=== PATIENT | female | born 1995 | race Caucasian/White ===

== ENCOUNTER 2018-07-29 09:20 | Inpatient (IN) | payer BC ==
[~2018-07-29] VITALS: Ht 154.9 cm; Wt 78.0 kg
[2018-07-29] VITALS (41 sets, daily range): BP systolic 110–139; BP diastolic 53–89
[~2018-07-29 09:20] MED LIST: DCS100C PO; IBP800T PO; OXYC1TAB12 PO; PREN1TAB25 PO
[2018-07-29] MEDS ORDERED: D5 LR IV SOLUTION 1,000 ML IV ONE (09:45)
[2018-07-29] MEDS ORDERED: D5 LR IV SOLUTION 1,000 ML IV SCH (10:08)
[2018-07-29] MEDS ORDERED: OXYTOCIN/NORMAL SALINE 500 ML IV SCH ×2 (10:17→11:20)
[2018-07-29 10:46] LABS: BASOPHILS % (AUTO) 0 % (0-10); EOSINOPHILS % (AUTO) 0 % (0-10); HEMATOCRIT 34 % (35-52); HEMOGLOBIN 11.9 G/DL (11.5-16.0); LYMPHOCYTES # (AUTO) 2.4 X 10^3 (1.0-4.0); LYMPHOCYTES % (AUTO) 21 % (12-44); MEAN CORPUSCULAR HEMOGLOBIN 31 PG (25-34); MEAN CORPUSCULAR HGB CONC 35 G/DL (32-36); MEAN CORPUSCULAR VOLUME 87 FL (80-99); MEAN PLATELET VOLUME 9.8 FL (7.4-10.4); MONOCYTES # (AUTO) 0.8 X 10^3 (0.0-1.0); MONOCYTES % (AUTO) 7 % (0-12); NEUTROPHILS # (AUTO) 7.9 X 10^3 (1.8-7.8); NEUTROPHILS % (AUTO) 71 % (42-75); PLATELET COUNT 272 10^3/uL (130-400); RED CELL DISTRIBUTION WIDTH 13.5 % (10.0-14.5); WHITE BLOOD COUNT 11.1 10^3/uL (4.3-11.0)
[2018-07-29] MEDS ORDERED: FLU QUADRIvalent (5+ YOA) 2018-2019 (AFLURIA) 0.5 ML IM ONE (11:00)
[2018-07-29] MEDS ORDERED: SUFENTA 0.6MCG/ML BUPIVA 0.125 100 ML ONE (11:04)
[2018-07-29] MEDS ORDERED: LIDOCAINE/EPI 2% 1:200,00 (XYLOCAINE) 10 ML VIAL ONE (11:04)
--- NOTE | 2018-07-29 11:26 | History & Physical ---
History and Physical Date Seen by Provider: Jul 29, 2018 Time Seen by Provider: 11:24 This patient is a 22-year-old white female with an EDC of 10 1518: Her at just past 38 weeks gestation. She presented with complaint of spontaneous rupture membranes at about 8AM when she noted a gush of pinkish fluid she has continued to leak clear. has been uncomplicated to date. GBS culture after 35 weeks gestation was negative. Allergies are none Medications are vitamins Medical social and surgical histories are per the antepartum record HEENT exam is normal Neck is supple no lymphadenopathy no thyromegaly Abdomen is gravid soft nontender nondistended Extremities show no clubbing cyanosis. There is no Homans sign. Pelvic exam is deferred - exam per the nurse on admission showed gross rupture membranes with nitrazine positive test reaches 4 cm dilated 80 percent effaced - 2 station with a vertex presentation Laboratory Tests 07/29/18 10:32 Assessment and plan 38 week gestation with PROM. Patient has been admitted she is requesting an epidural which will be allowed management will be expected. Anticipation is for vaginal delivery. PROM at 38 weeks gestation Allergies and Home Medications Allergies Coded Allergies: No Known Drug Allergies (Unverified , 04/08/15) Home Medications Vit#96/Ferrous Fum/Fa 1 Each Tablet, 1 EACH PO DAILY, (Reported) Patient Home Medication List Home Medication List Reviewed: Yes Clinical Quality Measures DVT/VTE Risk/Contraindication: Risk Factor Score Per Nursin RFS Level Per Nursing on Admit: 1=Low/No VTE PPX PIEDAD BUSTILLO MD Jul 29, 2018 11:26 am
[2018-07-29] MEDS ORDERED: oxyCODONE/APAP 5/325MG (PERCOCET 5) TABLET PO PRN (11:30)
[2018-07-29] MEDS ORDERED: ONDANSETRON 4 MG/2 ML (SDV) Z0FRAN IVP PRN (11:30)
[2018-07-29] MEDS ORDERED: MEASLES,MUMPS,RUBELLA 1 EA INJ SC ONE (11:30)
[2018-07-29] MEDS ORDERED: TETANUS,DIPTH,PERTUSS P/F (BOOSTRIX) 0.5 ML VIAL IM ONE (11:30)
[2018-07-29] MEDS ORDERED: fentaNYL INJECTION 100 MCG/2 ML AMP ONE (12:10)
[2018-07-29] MEDS ORDERED: BUPIVACAINE 0.5% 30 ML (SENSORCAINE) VIAL ONE (12:10)
[2018-07-29] MEDS ORDERED: LACTATED RINGERS 1,000 ML IV SCH (12:46)
[2018-07-29] MEDS ORDERED: ONDANSETRON 4 MG/2 ML (SDV) Z0FRAN IV PRN (13:00)
[2018-07-29] MEDS ORDERED: EPIDURAL (SUFENTA 0.6MCG/ML BUPIVA 0.125%) 100 ML BAG EPI PRN (13:00)
[2018-07-29] MEDS ORDERED: diphenhydrAMINE 50 MG/ML INJ (BENADRYL) IV PRN (13:00)
[2018-07-29] MEDS ORDERED: METOCLOPRAMIDE INJ 10 MG/2 ML (REGLAN) IV PRN (13:00)
[2018-07-29] MEDS ORDERED: NALOXONE 0.4 MG/ML 1 ML (NARCAN) VIAL IV PRN ×2 (13:00)
[2018-07-29] MEDS: OXYTOCIN/NORMAL SALINE 500 ML IV SCH ×2 (13:09→13:12)
[2018-07-29] MEDS ORDERED: LIDOCAINE/EPI 2% 1:200,00 (XYLOCAINE) 10 ML VIAL INJ ONE (15:54)
[2018-07-29] MEDS ORDERED: IBUP-1780 PO (16:36)
[2018-07-29] MEDS ORDERED: DOCU100C37 PO (16:36)
[2018-07-29] MEDS ORDERED: OXYC1TAB87 PO (16:36)
--- NOTE | 2018-07-29 16:37 | Discharge Instructions ---
Discharge Instructions Discharge Medications New, Converted or Re-Newed RX: RX on Chart Patient Instructions Patient Instructions: As directed Return to The Hospital For: DIRECTED Activity & Diet Discharge Diet: No Restrictions Activity as Tolerated: No Orders-Post D/C & Referrals Follow Up Appt: Call to make follow up appt. for patient in 4 weeks. Activity Per routine post vaginal delivery instructions. Diet as tolerated Patient may shower or tub bathe as desired. PIEDAD BUSTILLO MD Jul 29, 2018 4:37 pm
[2018-07-29] MEDS: KETOROLAC 30 MG/ML VIAL IV SCH (18:17)
[2018-07-29] MEDS ORDERED: WITCH HAZEL(TUCKS) 40 EA JAR ONE (18:51)
[2018-07-29] MEDS: WITCH HAZEL(TUCKS) 40 EA JAR TOP PRN (19:00)
[2018-07-29] MEDS: BENZOCAINE/MENTHOL (DERMOPLAST) 56 ML CAN TP PRN (19:00)
--- NOTE | 2018-07-29 19:33 | OPERATIVE REPORT ---
DATE OF SERVICE: 07/29/2018 DELIVERY NOTE The patient delivered by term spontaneous vaginal delivery a viable female infant with Apgars of 9 and 9 at 1 and 5 minutes respectively, weight of 7 pounds. Cord blood gas that is pending and a time of 1557. The infant was delivered over midline episiotomy that was performed as the posterior vaginal wall and perineum were beginning to split and tear somewhat irregularly. The episiotomy was performed allowing adequate room for the delivery. The delivered promptly, was bulb suctioned on delivery of the head and again on completion of delivery. Umbilical cord was doubly clamped, father cut the cord, the baby was passed to mom's abdomen. Cord bloods were obtained. The placenta delivered spontaneously Tellez. It was normal with a 3-vessel cord. The cervix, vagina, rectum, and perineum were examined and found intact except for the midline episiotomy in the posterior vaginal wall, second degree laceration, which were repaired with a single suture, has one defect in the usual manner without difficulty to good hemostasis. The patient tolerated the delivery and the repair well, and remained in the LDR for recovery. The baby remained with mom. Sponge and needle counts were correct at the end of procedure. Estimated blood loss for procedure was 150 mL. Job ID: [id number] DocumentID: [id number] Dictated Date: 07/29/2018 16:12:16 Coffee Break Attendant Date: 07/29/2018 19:32:04 Dictated By: PIEDAD BUSTILLO MD
[2018-07-29] MEDS: DOCUSATE SODIUM 100 MG (COLACE) CAP PO SCH (20:58)
[2018-07-30] VITALS: BP 105/69
[2018-07-30] MEDS: KETOROLAC 30 MG/ML VIAL IV SCH ×2 (00:35→06:31)
[2018-07-30 04:00] VITALS: BP 125/78
[2018-07-30] MEDS: CATHETER FLUSH 10 ML SYR IV SCH (06:31)
--- NOTE | 2018-07-30 07:29 | Progress Note-Standard ---
Standard Progress Note Progress Notes/Assess & Plan Date Seen by a Provider: Jul 30, 2018 Time Seen by a Provider: 07:28 Progress/Assessment & Plan This patient is without complaint. She is ambulating, voiding, tolerating oral intake well, has good pain control. Patient denies chest pain, denies shortness of breath, denies nausea vomiting, denies headache. Vital signs are stable. Patient is afebrile. Fundus is firm below the umbilicus nontender. Extremities show no clubbing cyanosis. There is no Homans sign. Vital Signs 07/30/18 04:00 Temp 97.9 Pulse 67 Resp 16 B/P (MAP) 125/78 (94) Pulse Ox 97 O2 Delivery Room Air Assessment and plan day number 1 doing well. Plan is for routine convalescence. PIEDAD BUSTILLO MD Jul 30, 2018 7:29 am
[2018-07-30 08:00] VITALS: BP 113/74
[2018-07-30] MEDS: DOCUSATE SODIUM 100 MG (COLACE) CAP PO SCH ×2 (08:04→20:24)
--- NOTE | 2018-07-30 10:00 | Anesthesia-Regional Post-Op ---
Regional Patient Condition Mental Status: Alert, Oriented x3 Circulation: Same as Pre-Op Headache: Absent Sensation: Full Recovery Motor Block: Absent Post Op Complications Complications Back is soar. Follow Up Care/Instructions Patient Instructions Assured patient that was normal. Informed her if not better in 5 days to call us. Anesthesia/Patient Condition Patient is doing well, no complaints, stable vital signs, no apparent adverse anesthesia problems. No complications reported per nursing. LAN THORNTON CRNA Jul 30, 2018 10:00
[2018-07-30 12:00] VITALS: BP 116/67
[2018-07-30] MEDS: IBUPROFEN 800 MG (MOTRIN) TAB PO SCH ×2 (12:18→17:45)
[2018-07-30 17:45] VITALS: BP 113/73
[2018-07-31] MEDS: IBUPROFEN 800 MG (MOTRIN) TAB PO SCH ×3 (00:14→11:33)
[2018-07-31] MEDS: CATHETER FLUSH 10 ML SYR IV SCH ×3 (00:19→11:22)
[2018-07-31] MEDS: KETOROLAC 30 MG/ML VIAL IV SCH (00:20)
[2018-07-31 00:21] VITALS: BP 113/75
[2018-07-31 05:42] VITALS: BP 122/77
--- NOTE | 2018-07-31 07:37 | Progress Note-Standard ---
Standard Progress Note Progress Notes/Assess & Plan Date Seen by a Provider: Jul 31, 2018 Time Seen by a Provider: 07:36 Progress/Assessment & Plan This patient is without complaint. She is ambulating, voiding, tolerating oral intake well, has good pain control. Patient denies chest pain, denies shortness of breath, denies nausea vomiting, denies headache. Vital signs are stable. Patient is afebrile. Fundus is firm below the umbilicus nontender. Extremities show no clubbing cyanosis. There is no Homans sign. Vital Signs 07/30/18 04:00 Temp 97.9 Pulse 67 Resp 16 B/P (MAP) 125/78 (94) Pulse Ox 97 O2 Delivery Room Air Assessment and plan day number 1 doing well. Plan is for routine convalescence. July 31, 2018 Patient is without complaint. She is ambulating, voiding, tolerating oral intake well, has good pain control, and is requesting discharge home. Vital Signs 07/31/18 05:42 Temp 97.5 Pulse 64 Resp 18 B/P (MAP) 122/77 (92) Pulse Ox 98 O2 Delivery Room Air Vital signs are stable. Patient is afebrile. Fundus is firm below the umbilicus and nontender. Extremities show no clubbing or cyanosis. There is no Homans sign. There is some pretibial pitting edema that is normal. Assessment and plan day number 2 doing well. Plan is for discharge home Final Diagnosis 38 week spontaneous vaginal delivery PIEDAD BUSTILLO MD Jul 31, 2018 7:37 am
[2018-07-31 09:10] VITALS: BP 113/76
[2018-07-31] MEDS: DOCUSATE SODIUM 100 MG (COLACE) CAP PO SCH (09:12)
[2018-07-31] MEDS: BENZOCAINE/MENTHOL (DERMOPLAST) 56 ML CAN TP PRN (09:12)
[2018-07-31] MEDS: WITCH HAZEL(TUCKS) 40 EA JAR TOP PRN (09:12)
== END 2018-07-31 13:07 | disposition home or self-care (01) | DRG 807 ==
LOC: LDRP 09:20 → WSo 09:20 → LDRP 10:03
PROVIDERS: ADMIT Obstetrics & Gynecology; ATTEND Obstetrics & Gynecology
PROC: 10E0XZZ Delivery of Products of Conception, External Approach (ICD-10-PCS; principal; 2018-07-29)
PROC: 0KQM0ZZ Repair Perineum Muscle, Open Approach (ICD-10-PCS; 2018-07-29)
PROC: 0W8NXZZ Division of Female Perineum, External Approach (ICD-10-PCS; 2018-07-29)
DX: O42.02 Full-term premature rupture of membranes, onset of labor within 24 hours of rupture (principal); O70.1 Second degree perineal laceration during delivery; O99.613 Diseases of the digestive system complicating pregnancy, third trimester; K21.9 Gastro-esophageal reflux disease without esophagitis; Z3A.38 38 weeks gestation of pregnancy; Z37.0 Single live birth
CPT/HCPCS: 36415; 85025; 86850; 86900; 86901; 99212

== ENCOUNTER 2020-12-12 14:15 | Outpatient (CLI) | payer BC ==
[~2020-12-12] VITALS: Ht 157.5 cm; Wt 79.2 kg
[~2020-12-12 14:15] MED LIST changes: +DOCU100C37 PO; +IBUP-1780 PO; +OXYC1TAB87 PO
[2020-12-12 14:30] VITALS: BP 115/70
[2020-12-12 14:45] VITALS: BP 115/70
[2020-12-12 14:54] LABS: BILIRUBIN,URINE NEGATIVE (NEGATIVE); CLARITY,URINE CLEAR; COLOR,URINE YELLOW; GLUCOSE, URINE (UA) NEGATIVE (NEGATIVE); KETONES,URINE TRACE (NEGATIVE); LEUKOCYTE ESTERASE ,URINE NEGATIVE (NEGATIVE); NITRITE,URINE NEGATIVE (NEGATIVE); PROTEIN,URINE TRACE (NEGATIVE)
[2020-12-12 15:04] LABS: BACTERIA,URINE TRACE /HPF; SQUAMOUS EPITHELIAL CELL,UR 0-2 /HPF; WBC,URINE RARE /HPF
[2020-12-12 15:26] VITALS: BP 103/61
[2020-12-12 16:25] VITALS: BP 103/61
--- NOTE | 2020-12-15 08:49 | Physician Query-Final Dx ---
Clinic Account Progress/Dx Physician Query: Please give diagnosis Please include # weeks gestation Date of Service Dec 12, 2020 at 14:15 YUDITH WHITE Dec 15, 2020 08:49
== END 2020-12-12 16:25 | disposition home or self-care (01) ==
LOC: WSo 14:15 → LDRP 14:16 → WSo 16:25
PROVIDERS: ATTEND Obstetrics & Gynecology
DX: O26.893 Other specified pregnancy related conditions, third trimester (principal); R10.2 Pelvic and perineal pain; Z3A.00 Weeks of gestation of pregnancy not specified
CPT/HCPCS: 81000; 87088; 99214

== ENCOUNTER 2021-01-16 09:12 | Inpatient (IN) | payer MEDICAID ==
[2021-01-16] VITALS (75 sets, daily range): BP systolic 75–161; BP diastolic 39–89
[~2021-01-16] VITALS: Ht 154.9 cm; Wt 80.5 kg
[2021-01-16] MEDS ORDERED: AMPICILLIN FOR IV USE 2,000 MG in WATER (STERILE) FOR INJECTION 14.8 ML IV ONE (09:30)
[2021-01-16] MEDS: D5 LR IV SOLUTION 1,000 ML IV SCH ×2 (09:51→16:59)
--- NOTE | 2021-01-16 09:53 | History & Physical ---
History and Physical Date Seen by Provider: Jan 16, 2021 Time Seen by Provider: 09:51 This patient is a 25-year-old 4 para 2 A1 white female seen in clinic on this date. She was found to have fairly marked oligohydramnios with an DINA of less than 33. Her previous was complicated by this as well. Decision made to admit for labor induction due to oligohydramnios. Patient's history is further complicated by GBS positive culture after 35 weeks gestation. Patient denies rupture membranes or bleeding. Allergies are none Medications are vitamins Medical social and surgical history is all per the antepartum record HEENT exam is normal Neck is supple no lymphadenopathy no thyromegaly Abdomen is gravid soft nontender nondistended Extremities show no clubbing cyanosis. There is no Homans' sign. Pelvic exam is deferred Assessment and plan 38-2/7 weeks gestation in a patient with fairly marked oligohydramnios plan is for admission for labor induction with Pitocin under the protection of ampicillin for GBS prophylaxis. We anticipate a vaginal delivery 38 weeks with oligohydramnios Allergies and Home Medications Allergies Coded Allergies: No Known Drug Allergies (Unverified , 04/08/15) Home Medications Vit#96/Ferrous Fum/Fa 1 Each Tablet, 1 EACH PO DAILY, (Reported) Patient Home Medication List Home Medication List Reviewed: Yes PIEDAD BUSTILLO MD Jan 16, 2021 09:53
[2021-01-16 10:13] LABS: BASOPHILS % (AUTO) 0 % (0-10); EOSINOPHILS % (AUTO) 0 % (0-10); HEMATOCRIT 33 % (35-52); HEMOGLOBIN 10.9 g/dL (11.5-16.0); LYMPHOCYTES # (AUTO) 2.3 10^3/uL (1.0-4.0); LYMPHOCYTES % (AUTO) 23 % (12-44); MEAN CORPUSCULAR HEMOGLOBIN 28 pg (25-34); MEAN CORPUSCULAR HGB CONC 33 g/dL (32-36); MEAN CORPUSCULAR VOLUME 86 fL (80-99); MEAN PLATELET VOLUME 9.7 fL (9.0-12.2); MONOCYTES # (AUTO) 0.7 10^3/uL (0.0-1.0); MONOCYTES % (AUTO) 7 % (0-12); NEUTROPHILS % (AUTO) 70 % (42-75); PLATELET COUNT 283 10^3/uL (130-400)
[2021-01-16] MEDS: OXYTOCIN PRE-MIX DRIP 500 ML IV SCH (10:57)
[2021-01-16] MEDS ORDERED: fentaNYL 2 mcg/ml BUPIVA 0.125 100 ML ONE (13:02)
[2021-01-16] MEDS ORDERED: fentaNYL INJ 100 MCG/2 ML AMP ONE (13:11)
[2021-01-16] MEDS ORDERED: BUPIVACAINE 0.25% 30 ML (SENSORCAINE) VIAL ONE (13:11)
[2021-01-16] MEDS: AMPICILLIN FOR IV USE 1,000 MG in WATER (STERILE) FOR INJECTION 7.4 ML IV SCH ×2 (14:15→18:40)
[2021-01-16] MEDS ORDERED: diphenhydrAMINE 50 MG/ML INJ (BENADRYL) IV PRN (14:30)
[2021-01-16] MEDS ORDERED: ONDANSETRON 4 MG/2 ML (SDV) Z0FRAN IV PRN (14:30)
[2021-01-16] MEDS ORDERED: METOCLOPRAMIDE INJ 10 MG/2 ML (REGLAN) IV PRN (14:30)
[2021-01-16] MEDS ORDERED: EPIDURAL (fentaNYL 2 MCG/ML BUPIVA 0.125%)100 ML BAG EPI PRN (14:30)
[2021-01-16] MEDS ORDERED: LACTATED RINGERS 1,000 ML IV SCH (14:30)
[2021-01-16] MEDS ORDERED: NALOXONE 0.4 MG/ML 1 ML (NARCAN) VIAL IV PRN ×2 (14:30)
[2021-01-16] MEDS ORDERED: OXYC1TAB87 PO (19:35)
[2021-01-16] MEDS ORDERED: DOCU-143 PO (19:35)
[2021-01-16] MEDS ORDERED: IBUP-1780 PO (19:35)
--- NOTE | 2021-01-16 19:36 | Discharge Inst-Surgical ---
Discharge Inst-Surgical Depart Medication/Instructions New, Converted or Re-Newed RX: RX on Chart Consults/Follow Up Patient Instructions: As directed Orders & Referrals Follow Up Appt: Call to make follow up appt. for patient in 4 weeks. Activity Per routine post vaginal delivery instructions. Please call in RX to patient pharmacy. Diet as tolerated Patient may shower or tub bathe as desired. Activity Activity as Tolerated: No Diet Discharge Diet: No Restrictions PIEDAD BUSTILLO MD Jan 16, 2021 19:36
[2021-01-16] MEDS ORDERED: LIDOCAINE/EPI 2% 1:200,00 (XYLOCAINE) 10 ML VIAL ONE (20:00)
[2021-01-16] MEDS ORDERED: TETANUS,DIPTH,PERTUSS P/F (BOOSTRIX) 0.5 ML VIAL IM ONE (23:00)
[2021-01-16] MEDS ORDERED: MEASLES,MUMPS,RUBELLA 1 EA INJ SC ONE (23:00)
[2021-01-16] MEDS ORDERED: ONDANSETRON 4 MG/2 ML (SDV) Z0FRAN IVP PRN (23:00)
[2021-01-16] MEDS ORDERED: OXYTOCIN PRE-MIX DRIP 500 ML IV SCH (23:00)
[2021-01-16] MEDS ORDERED: BENZOCAINE/MENTHOL (DERMOPLAST) 60 ML CAN TP PRN (23:00)
[2021-01-16] MEDS ORDERED: oxyCODONE/APAP 5/325MG (PERCOCET 5) TABLET PO PRN (23:00)
[2021-01-17] VITALS (7 sets, daily range): BP systolic 107–117; BP diastolic 56–67
[2021-01-17] MEDS: KETOROLAC 30 MG/ML VIAL IVP SCH ×5 (00:38→23:27)
--- NOTE | 2021-01-17 03:23 | OPERATIVE REPORT ---
DATE OF SERVICE: DELIVERY NOTE The patient delivered by term spontaneous vaginal delivery of a viable male with Apgars of 9 and 9 at 1 and 5 minutes respectively, weight of 7 pounds 4 ounces, time of 2203 and a cord blood pH of 7.16. The infant was delivered over a first-degree perineal laceration under epidural analgesia. There was a very tight nuchal cord that was slipped over the shoulders as the infant delivered. The was bulb suctioned on delivery of the head and again on completion of delivery. Umbilical cord when pulseless was doubly clamped and the father cut the cord, the baby was passed to mom's abdomen. Cord bloods were obtained. The placenta delivered spontaneously Tellez. It was normal with 3-vessel cord. The cervix, vagina, rectum, and perineum were examined and found intact, except for a second-degree perineal laceration that was repaired with a single suture of 3-0 Vicryl Rapide in the usual manner under local analgesia to good hemostasis and good reapproximation. The patient tolerated the delivery and the repair well and remained in the LDR for recovery. The baby remained with the mom. Sponge and needle counts were correct. Blood loss was around the 150 mL. Job ID: [id number] DocumentID: [id number] Dictated Date: 01/16/2021 23:01:32 Monogram Technician Date: 01/17/2021 03:22:35 Dictated By: PIEDAD BUSTILLO MD
[2021-01-17] MEDS: OXYTOCIN PRE-MIX DRIP 500 ML IV SCH (07:50)
[2021-01-17] MEDS: DOCUSATE SODIUM 100 MG (COLACE) CAP PO SCH ×2 (08:18→21:12)
--- NOTE | 2021-01-17 10:42 | Anesthesia-Regional Post-Op ---
Regional Patient Condition Mental Status: Alert, Oriented x3 Circulation: Same as Pre-Op Headache: Absent Sensation: Full Recovery Motor Block: Absent Post Op Complications Complications None Follow Up Care/Instructions Patient Instructions None needed. Anesthesia/Patient Condition Patient is doing well, no complaints, stable vital signs, no apparent adverse anesthesia problems. No complications reported per nursing. D/C home per [facility] Criteria: AZIZA Oglesby CRNA Jan 17, 2021 10:42
--- NOTE | 2021-01-17 10:47 | Progress Note ---
Standard Progress Note Progress Notes/Assess & Plan Date Seen by a Provider: Jan 17, 2021 Time Seen by a Provider: 10:46 Progress/Assessment & Plan This patient is without complaint. She is ambulating, voiding, tolerating oral intake well and has good pain control. Vital Signs Date Time Temp Pulse Resp B/P (MAP) Pulse Ox O2 Delivery O2 Flow Rate FiO2 01/17/21 08:00 36.2 92 18 107/59 (75) 97 Room Air 01/17/21 04:00 36.5 80 18 109/56 (73) Room Air 01/17/21 00:15 102 18 112/61 (78) Room Air 01/17/21 00:00 106 18 116/67 (83) Room Air 01/16/21 23:45 115 18 117/65 (82) Room Air 01/16/21 23:30 36.7 107 18 113/58 (76) Room Air 01/16/21 23:15 109 18 121/57 (78) Room Air 01/16/21 23:00 121 18 161/89 (113) Room Air 01/16/21 22:45 110 18 115/58 (77) Room Air 01/16/21 22:30 36.5 110 18 124/61 (82) Room Air 01/16/21 22:00 127 18 122/66 (84) Room Air 01/16/21 21:45 100 18 116/69 (85) Room Air 01/16/21 21:30 101 18 121/73 (89) 100 Room Air 01/16/21 21:15 100 18 116/73 (87) 100 Room Air 01/16/21 21:00 93 18 114/68 (83) 100 Room Air 01/16/21 20:45 97 18 116/70 (85) 100 Room Air 01/16/21 20:30 88 18 113/65 (81) 100 Room Air 01/16/21 20:15 90 18 114/60 (78) 100 Room Air 01/16/21 20:00 90 18 103/56 (72) 100 Room Air 01/16/21 19:45 36.5 97 18 106/62 (77) 100 Room Air 01/16/21 19:15 97 18 120/65 (83) 100 Room Air 01/16/21 19:00 93 18 111/58 (75) 100 Room Air 01/16/21 18:45 84 18 111/55 (73) 100 Room Air 01/16/21 18:40 36.3 01/16/21 18:30 94 18 111/63 (79) 100 Room Air 01/16/21 18:14 94 18 106/62 (77) 100 Room Air 01/16/21 18:00 92 18 108/61 (77) 100 Room Air 01/16/21 17:47 36.4 01/16/21 17:44 87 18 108/61 (77) 100 Room Air 01/16/21 17:30 86 18 99/54 (69) 100 Room Air 01/16/21 17:13 81 18 102/55 (71) 100 Room Air 01/16/21 16:59 85 18 103/55 (71) 100 Room Air 01/16/21 16:44 89 18 107/58 (74) 100 Room Air 01/16/21 16:30 86 18 110/58 (75) 100 Room Air 01/16/21 16:14 82 18 103/56 (72) 100 Room Air 01/16/21 15:59 36.1 100 18 101/56 (71) 100 Room Air 01/16/21 15:44 104 18 93/52 (66) 99 Room Air 01/16/21 15:28 97 18 103/58 (73) 100 Room Air 01/16/21 15:22 92 18 87/48 (61) 100 Room Air 01/16/21 15:17 107 18 93/54 (67) 97 Room Air 01/16/21 15:12 100 18 102/58 (73) 97 Room Air 01/16/21 15:07 78 18 91/53 (66) 97 Room Air 01/16/21 15:00 97 18 87/54 (65) 99 Room Air 01/16/21 14:57 98 18 90/52 (65) 99 Room Air 01/16/21 14:54 97 18 102/58 (73) 99 Room Air 01/16/21 14:51 85 18 109/55 (73) Room Air 01/16/21 14:48 89 18 91/49 (63) 98 Room Air 01/16/21 14:45 99 18 99/55 (70) 98 Room Air 01/16/21 14:42 92 18 109/56 (73) 98 Room Air 01/16/21 14:39 85 18 105/55 (72) 98 Room Air 01/16/21 14:36 107 18 106/55 (72) 99 Room Air 01/16/21 14:33 73 18 104/57 (73) 97 Room Air 01/16/21 14:31 72 18 101/55 (70) Room Air 01/16/21 14:28 73 18 78/43 (55) Room Air 01/16/21 14:27 75 18 85/42 (56) Room Air 01/16/21 14:26 76 18 91/48 (62) Room Air 01/16/21 14:24 77 18 91/53 (66) 97 Room Air 01/16/21 14:22 67 18 76/39 (51) Room Air 01/16/21 14:21 65 18 75/39 (51) Room Air 01/16/21 14:17 36.4 92 18 104/59 (74) 99 Room Air 01/16/21 14:14 93 18 92/53 (66) 97 Room Air 01/16/21 14:11 95 18 103/68 (80) 97 Room Air 01/16/21 14:08 84 18 121/73 (89) 98 Room Air 01/16/21 14:05 82 18 121/73 (89) Room Air 01/16/21 14:02 85 18 128/72 (90) 99 Room Air 01/16/21 13:59 91 18 130/75 (93) 100 Room Air 01/16/21 13:57 85 18 124/81 (95) 100 Room Air 01/16/21 13:54 94 18 134/83 (100) 100 Room Air 01/16/21 13:46 76 18 121/74 (90) Room Air 01/16/21 13:30 78 18 123/79 (94) Room Air 01/16/21 13:15 76 18 120/72 (88) Room Air 01/16/21 13:00 91 18 118/72 (87) Room Air 01/16/21 12:45 83 18 114/74 (87) Room Air 01/16/21 12:31 79 18 123/70 (87) Room Air 01/16/21 12:15 80 18 108/65 (79) Room Air 01/16/21 12:01 92 18 121/74 (90) Room Air 01/16/21 11:50 36.7 01/16/21 11:46 90 18 110/72 (85) Room Air 01/16/21 11:31 78 18 110/72 (85) Room Air 01/16/21 11:15 80 18 107/67 (80) Room Air 01/16/21 11:00 81 18 112/69 (83) Room Air I & O 01/17/21 06:59 Intake Total 1500 ml Balance 1500 ml Vital signs are stable. Patient is afebrile. Fundus is firm below the umbilicus nontender. Extremities show no clubbing cyanosis. No Homans' sign. Assessment and plan day #1 doing well plan is for routine convalescent care PIEDAD BUSTILLO MD Jan 17, 2021 10:47
[2021-01-17] MEDS: IBUPROFEN 800 MG (MOTRIN) TAB PO SCH ×3 (12:28→23:47)
[2021-01-18 00:12] VITALS: BP 116/76
[2021-01-18 04:00] VITALS: BP 111/72
[2021-01-18] MEDS: IBUPROFEN 800 MG (MOTRIN) TAB PO SCH (06:29)
--- NOTE | 2021-01-18 06:35 | Progress Note ---
Standard Progress Note Progress Notes/Assess & Plan Date Seen by a Provider: Jan 18, 2021 Time Seen by a Provider: 06:33 Progress/Assessment & Plan This patient is without complaint. She is ambulating, voiding, tolerating oral intake well and has good pain control. Vital Signs Date Time Temp Pulse Resp B/P (MAP) Pulse Ox O2 Delivery O2 Flow Rate FiO2 01/17/21 08:00 36.2 92 18 107/59 (75) 97 Room Air 01/17/21 04:00 36.5 80 18 109/56 (73) Room Air 01/17/21 00:15 102 18 112/61 (78) Room Air 01/17/21 00:00 106 18 116/67 (83) Room Air 01/16/21 23:45 115 18 117/65 (82) Room Air 01/16/21 23:30 36.7 107 18 113/58 (76) Room Air 01/16/21 23:15 109 18 121/57 (78) Room Air 01/16/21 23:00 121 18 161/89 (113) Room Air 01/16/21 22:45 110 18 115/58 (77) Room Air 01/16/21 22:30 36.5 110 18 124/61 (82) Room Air 01/16/21 22:00 127 18 122/66 (84) Room Air 01/16/21 21:45 100 18 116/69 (85) Room Air 01/16/21 21:30 101 18 121/73 (89) 100 Room Air 01/16/21 21:15 100 18 116/73 (87) 100 Room Air 01/16/21 21:00 93 18 114/68 (83) 100 Room Air 01/16/21 20:45 97 18 116/70 (85) 100 Room Air 01/16/21 20:30 88 18 113/65 (81) 100 Room Air 01/16/21 20:15 90 18 114/60 (78) 100 Room Air 01/16/21 20:00 90 18 103/56 (72) 100 Room Air 01/16/21 19:45 36.5 97 18 106/62 (77) 100 Room Air 01/16/21 19:15 97 18 120/65 (83) 100 Room Air 01/16/21 19:00 93 18 111/58 (75) 100 Room Air 01/16/21 18:45 84 18 111/55 (73) 100 Room Air 01/16/21 18:40 36.3 01/16/21 18:30 94 18 111/63 (79) 100 Room Air 01/16/21 18:14 94 18 106/62 (77) 100 Room Air 01/16/21 18:00 92 18 108/61 (77) 100 Room Air 01/16/21 17:47 36.4 01/16/21 17:44 87 18 108/61 (77) 100 Room Air 01/16/21 17:30 86 18 99/54 (69) 100 Room Air 01/16/21 17:13 81 18 102/55 (71) 100 Room Air 01/16/21 16:59 85 18 103/55 (71) 100 Room Air 01/16/21 16:44 89 18 107/58 (74) 100 Room Air 01/16/21 16:30 86 18 110/58 (75) 100 Room Air 01/16/21 16:14 82 18 103/56 (72) 100 Room Air 01/16/21 15:59 36.1 100 18 101/56 (71) 100 Room Air 01/16/21 15:44 104 18 93/52 (66) 99 Room Air 01/16/21 15:28 97 18 103/58 (73) 100 Room Air 01/16/21 15:22 92 18 87/48 (61) 100 Room Air 01/16/21 15:17 107 18 93/54 (67) 97 Room Air 01/16/21 15:12 100 18 102/58 (73) 97 Room Air 01/16/21 15:07 78 18 91/53 (66) 97 Room Air 01/16/21 15:00 97 18 87/54 (65) 99 Room Air 01/16/21 14:57 98 18 90/52 (65) 99 Room Air 01/16/21 14:54 97 18 102/58 (73) 99 Room Air 01/16/21 14:51 85 18 109/55 (73) Room Air 01/16/21 14:48 89 18 91/49 (63) 98 Room Air 01/16/21 14:45 99 18 99/55 (70) 98 Room Air 01/16/21 14:42 92 18 109/56 (73) 98 Room Air 01/16/21 14:39 85 18 105/55 (72) 98 Room Air 01/16/21 14:36 107 18 106/55 (72) 99 Room Air 01/16/21 14:33 73 18 104/57 (73) 97 Room Air 01/16/21 14:31 72 18 101/55 (70) Room Air 01/16/21 14:28 73 18 78/43 (55) Room Air 01/16/21 14:27 75 18 85/42 (56) Room Air 01/16/21 14:26 76 18 91/48 (62) Room Air 01/16/21 14:24 77 18 91/53 (66) 97 Room Air 01/16/21 14:22 67 18 76/39 (51) Room Air 01/16/21 14:21 65 18 75/39 (51) Room Air 01/16/21 14:17 36.4 92 18 104/59 (74) 99 Room Air 01/16/21 14:14 93 18 92/53 (66) 97 Room Air 01/16/21 14:11 95 18 103/68 (80) 97 Room Air 01/16/21 14:08 84 18 121/73 (89) 98 Room Air 01/16/21 14:05 82 18 121/73 (89) Room Air 01/16/21 14:02 85 18 128/72 (90) 99 Room Air 01/16/21 13:59 91 18 130/75 (93) 100 Room Air 01/16/21 13:57 85 18 124/81 (95) 100 Room Air 01/16/21 13:54 94 18 134/83 (100) 100 Room Air 01/16/21 13:46 76 18 121/74 (90) Room Air 01/16/21 13:30 78 18 123/79 (94) Room Air 01/16/21 13:15 76 18 120/72 (88) Room Air 01/16/21 13:00 91 18 118/72 (87) Room Air 01/16/21 12:45 83 18 114/74 (87) Room Air 01/16/21 12:31 79 18 123/70 (87) Room Air 01/16/21 12:15 80 18 108/65 (79) Room Air 01/16/21 12:01 92 18 121/74 (90) Room Air 01/16/21 11:50 36.7 01/16/21 11:46 90 18 110/72 (85) Room Air 01/16/21 11:31 78 18 110/72 (85) Room Air 01/16/21 11:15 80 18 107/67 (80) Room Air 01/16/21 11:00 81 18 112/69 (83) Room Air I & O 01/17/21 06:59 Intake Total 1500 ml Balance 1500 ml Vital signs are stable. Patient is afebrile. Fundus is firm below the umbilicus nontender. Extremities show no clubbing cyanosis. No Homans' sign. Assessment and plan day #1 doing well plan is for routine convalescent care January 18, 2021 This patient is without complaint. She is ambulating, voiding, tolerating oral intake well and has good pain control. Vital signs are stable. Patient is afebrile. Fundus is firm below the umbilicus and nontender. Extremities show no clubbing cyanosis. There is no Homans' sign. Assessment and plan day #2 status post term spontaneous vaginal delivery at 38 weeks gestation. Patient is doing well and will be discharged home Final Diagnosis 38-week TSVD PIEDAD BUSTILLO MD Jan 18, 2021 06:35
[2021-01-18 08:45] VITALS: BP 121/66
[2021-01-18] MEDS: DOCUSATE SODIUM 100 MG (COLACE) CAP PO SCH (08:48)
[2021-01-18 12:10] VITALS: BP 121/66
== END 2021-01-18 12:10 | disposition home or self-care (01) | DRG 807 ==
LOC: LDRP 09:12
PROVIDERS: ADMIT Obstetrics & Gynecology; ATTEND Obstetrics & Gynecology
PROC: 10E0XZZ Delivery of Products of Conception, External Approach (ICD-10-PCS; principal; 2021-01-16)
PROC: 0KQM0ZZ Repair Perineum Muscle, Open Approach (ICD-10-PCS; 2021-01-16)
PROC: 3E033VJ Introduction of Other Hormone into Peripheral Vein, Percutaneous Approach (ICD-10-PCS; 2021-01-16)
DX: O41.03X0 Oligohydramnios, third trimester, not applicable or unspecified (principal); Z37.0 Single live birth; O99.824 Streptococcus B carrier state complicating childbirth; O70.1 Second degree perineal laceration during delivery; O69.1XX0 Labor and delivery complicated by cord around neck, with compression, not applicable or unspecified; Z3A.38 38 weeks gestation of pregnancy
CPT/HCPCS: 36415; 85025; 86850; 86900; 86901